=== PATIENT | female | born 1965 | race Caucasian/White ===

== ENCOUNTER → 2019-10-24 | Outpatient (CLI) | payer BC, OTHER ==
[~2019-10-24] MED LIST: LOESTRIN 24 FE1 EACH; PERCOCET 5-3251 EACH PO
== END ==
LOC: NUC 10:45
DX: M54.16 Radiculopathy, lumbar region (principal); M19.011 Primary osteoarthritis, right shoulder; M19.012 Primary osteoarthritis, left shoulder; Z96.641 Presence of right artificial hip joint